=== PATIENT | male | born 1965 | race Caucasian/White ===

== ENCOUNTER 2016-07-08 11:53 | Inpatient (IN) | payer OTHER ==
[~2016-07-08] VITALS: Ht 177.8 cm; Wt 100.7 kg
[~2016-07-08 11:53] MED LIST: ALPR0.5T PO; AMLO1TAB78 PO; CELE200C PO; OMEG1CAP6 PO; OMEP20CA5 PO; VENTOLIN HFA18 GM IH
[2016-07-08 12:20] VITALS: BP 137/92
[2016-07-08] MEDS ORDERED: VANCOMYCIN 1GM IVPB FOR OMNI 250 ML IV ONE (14:00)
[2016-07-08] MEDS ORDERED: ACETAMINOPHEN 325 MG TABLET. PO PRN (14:00)
[2016-07-08] MEDS ORDERED: ONDANSETRON PF 4 MG/2 ML VIAL. IV PRN (14:00)
[2016-07-08] MEDS ORDERED: PIP/TAZO PER PHARMACY MC PRN (14:15)
[2016-07-08] MEDS ORDERED: HEPARIN PF 500 UNIT/5 ML DISP.SYRIN. IV ONE (14:30)
[2016-07-08 15:00] VITALS: BP 126/76
[2016-07-08] MEDS ORDERED: VANCOMYCIN 2 GM in IV NORMAL SALINE 500ML BAG 500 ML IV ONE (15:00)
[2016-07-08 15:30] LABS: BASO % 1 % (0-3); EOS % 2 % (0-3); HEMATOCRIT 44.8 % (39.0-53.0); HEMOGLOBIN 14.7 g/dL (13.0-17.5); LYMPH # 1.7 x10^3/uL (1.0-4.8); LYMPH % 21 % (24-48); MEAN CORPUSCULAR HEMOGLOBIN 28 pg (25-35); MEAN CORPUSCULAR HGB CONC 33 g/dL (31-37); MEAN CORPUSCULAR VOLUME 85 fL (79-100); MONO % 9 % (0-9); NEUT % 68 % (31-73); PLATELET COUNT 250 x10^3/uL (140-400); RED BLOOD COUNT 5.28 x10^6/uL (4.30-5.70); RED CELL DISTRIBUTION WIDTH 14.5 % (11.5-14.5); WHITE BLOOD COUNT 8.1 x10^3/uL (4.0-11.0)
[2016-07-08] MEDS: PIPERACILLIN/TAZOBACTAM 3.375 GM in IV NORMAL SALINE 50ML 50 ML IV SCH (16:04)
[2016-07-08 16:25] LABS: ALBUMIN 3.3 g/dL (3.4-5.0); ALBUMIN/GLOBULIN RATIO 0.7 (1.0-1.7); CALCIUM 8.6 mg/dL (8.5-10.1); GFR 79.1; POTASSIUM 3.9 mmol/L (3.5-5.1); TOTAL BILIRUBIN 0.8 mg/dL (0.2-1.0)
[2016-07-08] MEDS: VANCOMYCIN PER PHARMACY MC PRN ×2 (16:40→16:52)
[2016-07-08] MEDS ORDERED: CONTRAST GIVEN MC PRN (18:00)
[2016-07-08] MEDS ORDERED: IOHEXOL 240 MG/ML 50ML VIAL. PO ONE (18:00)
[2016-07-08 19:00] VITALS: BP 106/60
--- NOTE | 2016-07-08 20:19 | RAD ---
PROCEDURE CT scan of the abdomen and pelvis with oral contrast only 07/08/2016 HISTORY Severe abdominal pain and diarrhea. TECHNIQUE After the oral administration contrast only contiguous, 5 millimeter axial sections were obtained through the abdomen and pelvis. One or more of the following individualized dose reduction techniques were utilized for this study: 1. Automated exposure control. 2. Adjustment of the mA and/or kV according to patient size. 3. Use of iterative reconstruction technique. FINDINGS Images through the lung bases demonstrate a moderate-sized sliding hiatal hernia. Linear bands of subsegmental atelectasis are seen involving both lower lobes. The liver, spleen, pancreas, adrenal glands and kidneys are within normal limits. The abdominal aorta tapers normally. Mild scattered atherosclerotic plaque formation is seen. The gallbladder is contracted. No free fluid or free air is seen within the abdomen. There is no evidence of bowel obstruction. A small umbilical hernia is seen which contains fat and a portion of the proximal jejunum. It measures 1.9 centimeters in greatest diameter. No obstruction is seen. Diffuse wall thickening is seen involving mid jejunal loops within the abdomen. These findings are consistent with an inflammatory/infectious jejunitis. No abscess is seen. Images through the pelvis demonstrate the urinary bladder be contracted. Surgical clips are seen within the left inguinal region. No free fluid is seen. Minimal S-shaped curvature of the thoracolumbar spine is seen. Degenerative changes are seen involving the thoracic and lumbar spine. IMPRESSION Diffuse wall thickening of the mid jejunum is seen consistent with a inflammatory/infectious jejunitis. No abscess or obstruction is seen. Electronically signed by: Job Martin MD (Jul 08, 2016 20:19:03)
[2016-07-08] MEDS: ALPRAZOLAM 0.5 MG TABLET. PO SCH (20:32)
--- NOTE | 2016-07-08 22:01 | HP ---
ADMIT DATE: 07/08/2016 CHIEF COMPLAINT AND HISTORY OF PRESENT ILLNESS: This 51-year-old white male is well known to me from followup in the office. The patient was first seen for this problem on Monday. He came in with left foot pain. ____ dorsum of the foot, probably as big around as a softball and tennis ball in diameter, very tender to the touch. It was felt that this was either cellulitis or ____, was started on Keflex, lab was checked including a CMP, CBC, sed rate and uric acid, all of which were fairly unremarkable. He was seen on the day of admission, much worse with obvious spread of the redness suggesting a cellulitis. He has had a partial big toe amputation of the left foot and prior trauma and has a callus was scabbed on the bottom of the foot, wondering if these two are communicating, although the normal sed rate was quite surprising, but was ____ IV antibiotics as well Ortho and ID evaluation and the patient was admitted. PAST MEDICAL HISTORY: Remarkable for low testosterone, has a history of hypertension, anxiety, GERD. MEDICATIONS: Brought with the patient, listed on the computer and have been addressed. ALLERGIES: None. SOCIAL HISTORY: He is a nonsmoker, does social drink alcohol, does not use drugs. , lives at home with his . FAMILY HISTORY: Noncontributory. REVIEW OF SYSTEMS: Those mentioned above. He has been having diarrhea up to 2-3 times an hour for the last day or so and he complains of abdominal in addition. PHYSICAL EXAMINATION: GENERAL: He is a well-developed, well-nourished white male, in no severe distress. VITAL SIGNS: Stable. He is afebrile. HEENT: Unremarkable. NECK: Supple without adenopathy or thyromegaly. CHEST: Clear to auscultation and percussion. HEART: Regular rate and rhythm without S3, S4 or murmur. ABDOMEN: Diffusely tender without rebound or guarding, though seemed have some hypoactive bowel sounds. EXTREMITIES: Revealed dorsum of the left foot covered with cellulitis and quite tender in the midfoot area. NEUROLOGIC: He is intact. ASSESSMENT: Cellulitis of the left foot with other problems listed above. PLAN: The patient has been admitted, antibiotics will be started. Ortho will be consulted as well with ID and the patient will be monitored, managed and treated appropriately. DAVON JAUREGUI MD DR: Chloe JOB#: [id number] / [id number]
[2016-07-08] MEDS: HYDROCODONE/APAP 5/325MG TABLET. PO PRN (22:41)
[2016-07-08 23:00] VITALS: BP 123/80
[2016-07-09] MEDS: PIPERACILLIN/TAZOBACTAM 3.375 GM in IV NORMAL SALINE 50ML 50 ML IV SCH ×4 (00:03→17:41)
[2016-07-09] MEDS: VANCOMYCIN 1.5 GM in IV NORMAL SALINE 500ML BAG 500 ML IV SCH ×3 (00:47→21:00)
[2016-07-09] MEDS: HYDROCODONE/APAP 5/325MG TABLET. PO PRN ×5 (02:43→22:46)
[2016-07-09 03:00] VITALS: BP 101/53
[2016-07-09 07:00] VITALS: BP 126/74
[2016-07-09] MEDS ORDERED: CELECOXIB 200 MG CAPSULE PO SCH (08:00)
[2016-07-09] MEDS: PANTOPRAZOLE 40 MG TABLET.DR. PO SCH (09:15)
[2016-07-09] MEDS: CELECOXIB 200 MG CAPSULE. PO SCH (09:16)
[2016-07-09] MEDS: OMEGA-3 FATTY ACIDS/FISH OIL 1,000 MG CAPSULE. PO SCH (09:21)
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
[2016-07-09 11:00] VITALS: BP 114/78
--- NOTE | 2016-07-09 11:04 | RAD ---
Three-view left foot study History: Left foot cellulitis Comparison: January 06, 2008. Findings: The previously seen metallic K wire has been removed from the first digit. Since the previous study, an amputation has been performed at the level of the first interphalangeal joint. No osteolytic process is seen. Old healed fracture of the distal third metatarsal bone is seen. No acute fracture is seen. 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 IMPRESSION: No osteomyelitis is seen radiographically.
[2016-07-09] MEDS: COLCHICINE 0.6 MG TABLET PO SCH ×2 (11:08→21:00)
--- NOTE | 2016-07-09 11:59 | PDOC ---
SUBJECTIVE Subjective foot better no osteo on xray OBJECTIVE Vital Signs Vital Signs Date Time Temp Pulse Resp B/P Pulse Ox O2 Delivery O2 Flow Rate FiO2 07/09/16 11:00 97.3 62 20 114/78 98 Room Air 97.3 07/09/16 07:00 97.9 59 20 126/74 97 Room Air 97.9 07/09/16 06:37 95 Room Air 07/09/16 03:45 95 Room Air 07/09/16 03:00 98.6 97 18 101/53 95 Room Air 98.6 07/09/16 02:43 96 Room Air 07/08/16 23:00 98.6 72 18 123/80 96 Room Air 98.6 07/08/16 22:41 94 07/08/16 20:00 Room Air 07/08/16 19:00 98.3 82 18 106/60 94 Room Air 98.3 07/08/16 15:00 97.7 72 18 126/76 95 Room Air 97.7 07/08/16 12:20 97.9 95 18 137/92 97 Room Air 97.9 I & O Intake and Output 07/09/16 07:00 Intake Total 500 ml Balance 500 ml Intake Oral 500 ml # Bowel Movements 4 PHYSICAL EXAM Physical Exam lungs clear heart RRR abd soft mild tenderness today seems better ext left foot better ASSESSMENT/PLAN Assessment/Plan 1- Jujenitis and abd pain/ wt loss , + previous episodes not as bad R/O inflammatory Bowel disease 2-left foot cellulitis vs gout or inflammatory joint disease improved continue ABx and colchicine 3-HTN 4-hypogonadism Problems: COMMENT Lab Laboratory Tests Test 07/08/16 13:45 07/08/16 14:40 Clostridium difficile Toxin (PCR) Negative (Negative) White Blood Count 8.1x10^3/uL (4.0-11.0) Red Blood Count 5.28x10^6/uL (4.30-5.70) Hemoglobin 14.7g/dL (13.0-17.5) Hematocrit 44.8% (39.0-53.0) Mean Corpuscular Volume 85fL (79-100) Mean Corpuscular Hemoglobin 28pg (25-35) Mean Corpuscular Hemoglobin Concent 33g/dL (31-37) Red Cell Distribution Width 14.5% (11.5-14.5) Platelet Count 250x10^3/uL (140-400) Neutrophils (%) (Auto) 68% (31-73) Lymphocytes (%) (Auto) 21% (24-48) Monocytes (%) (Auto) 9% (0-9) Eosinophils (%) (Auto) 2% (0-3) Basophils (%) (Auto) 1% (0-3) Neutrophils # (Auto) 5.5x10^3uL (1.8-7.7) Lymphocytes # (Auto) 1.7x10^3/uL (1.0-4.8) Monocytes # (Auto) 0.7x10^3/uL (0.0-1.1) Eosinophils # (Auto) 0.2x10^3/uL (0.0-0.7) Basophils # (Auto) 0.0x10^3/uL (0.0-0.2) Erythrocyte Sedimentation Rate 17 (0-15) Sodium Level 135mmol/L (136-145) Potassium Level 3.9mmol/L (3.5-5.1) Chloride Level 103mmol/L (98-107) Carbon Dioxide Level 20mmol/L (21-32) Anion Gap 12 (6-14) Blood Urea Nitrogen 16mg/dL (8-26) Creatinine 1.0mg/dL (0.7-1.3) Estimated GFR (Cockcroft-Gault) 79.1 BUN/Creatinine Ratio 16 (6-20) Glucose Level 86mg/dL (70-99) Calcium Level 8.6mg/dL (8.5-10.1) Total Bilirubin 0.8mg/dL (0.2-1.0) Aspartate Amino Transf (AST/SGOT) 15U/L (15-37) Alanine Aminotransferase (ALT/SGPT) 27U/L (16-63) Alkaline Phosphatase 59U/L (46-116) Total Protein 8.0g/dL (6.4-8.2) Albumin 3.3g/dL (3.4-5.0) Albumin/Globulin Ratio 0.7 (1.0-1.7) JONATHAN TORRES MD Jul 09, 2016 11:59
[2016-07-09] MEDS: OXYCODONE/APAP 7.5/325 TABLET. PO PRN ×2 (12:44→21:03)
[2016-07-09] MEDS: ENOXAPARIN 40 MG/0.4 ML SYRINGE. SQ SCH (12:51)
--- NOTE | 2016-07-09 13:27 | PDOC2 ---
CONSULT Date of Consult Date of Consult DATE: 07/09/16 TIME: 13:25 Reason for Consult Reason for Consult: Abd pain/diarrhea/abnl Ct scan jejunitis Current Medications Current Medications Current Medications Vancomycin HCl 250 ml @ 250 mls/hr 1X ONCE IV ; Start 07/08/16 at 14:00; Stop 07/08/16 at 14:59; Status UNV Heparin Sodium (Porcine) (Hep Lock Adult) 500 unit 1X ONCE IV Last administered on 07/08/16 16:35; Start 07/08/16 at 14:30; Stop 07/08/16 at 14:31; Status DC Ondansetron HCl (Zofran) 4 mg PRN Q6HRS PRN IV NAUSEA/VOMITING Last administered on 07/08/16 17:27; Start 07/08/16 at 14:00 Acetaminophen (Tylenol) 650 mg PRN Q6HRS PRN PO MILD PAIN / TEMP; Start at 14:00 Vancomycin HCl (Vanco Per Pharmacy) 1 each PRN DAILY PRN MC SEE COMMENTS Last administered on 07/08/16 16:52; Start 07/08/16 at 14:15 Piperacillin Sod/ Tazobactam Sod 1 each 1 each PRN DAILY PRN MC SEE COMMENTS; Start 07/08/16 at 14:15 Vancomycin HCl 2 gm/Sodium Chloride 500 ml @ 250 mls/hr 1X ONCE IV Last administered on 07/08/16 16:02; Start 07/08/16 at 15:00; Stop 07/08/16 at 16:59; Status DC Piperacillin Sod/ Tazobactam Sod/ Sodium Chloride (Zosyn/Iv Sodium Chloride 0.9 % 50ml) 50 ml @ 100 mls/hr Q6HRS IV Last administered on 07/09/16 12:50; Start 07/08/16 at 15:00 Vancomycin HCl 1 each 1 each 1X ONCE MC ; Start 07/09/16 at 15:30; Stop 07/09/16 at 15:31 Vancomycin HCl/ Sodium Chloride (Iv Sodium Chloride 0.9% 500ml Bag) 500 ml @ 250 mls/hr Q8H IV Last administered on 07/09/16 09:16; Start 07/08/16 at 23:59 Alprazolam (Xanax) 0.5 mg QHS PO Last administered on 07/08/16 20:32; Start 07/08/16 at 21:00 Celecoxib (Celebrex) 200 mg DAILY08 PO ; Start 07/09/16 at 08:00; Stop 07/09/16 at 08:00; Status DC Fish Oil (Fish Oil) 1,000 mg DAILY PO Last administered on 07/09/16 09:21; Start 07/09/16 at 09:00 Pantoprazole Sodium (Protonix) 40 mg DAILYAC PO Last administered on 07/09/16 09:15; Start 07/09/16 at 07:30 Celecoxib (Celebrex) 200 mg DAILY08 PO Last administered on 07/09/16 09:16; Start 07/09/16 at 08:00 Iohexol (Omnipaque 240 Mg/ml) 30 ml 1X ONCE PO Last administered on 07/08/16 18:00; Start 07/08/16 at 18:00; Stop 07/08/16 at 18:01; Status DC Info (Do NOT chart on this entry -- for MONITORING) 1 each PRN DAILY PRN MC SEE COMMENTS; Start 07/08/16 at 18:00; Stop 07/10/16 at 17:59 Acetaminophen/ Hydrocodone Bitart (Lortab 5/325) 1 tab PRN Q4HRS PRN PO PAIN; Start 07/08/16 at 21:15 Acetaminophen/ Hydrocodone Bitart (Lortab 5/325) 2 tab PRN Q4HRS PRN PO PAIN Last administered on 07/09/16 11:09; Start 07/08/16 at 21:15 Colchicine (Colcrys) 0.6 mg BID PO Last administered on 07/09/16 11:08; Start 07/09/16 at 10:30; Stop 07/14/16 at 10:29 Oxycodone/ Acetaminophen (Percocet 7.5/ 325) 1 tab PRN Q6HRS PRN PO PAIN Last administered on 07/09/16 12:44; Start 07/09/16 at 12:00 Enoxaparin Sodium (Lovenox 40mg Syringe) 40 mg Q24H SQ Last administered on 07/09 12:51; Start 07/09/16 at 13:00 Active Scripts Active Reported Fish Oil 1,000 Mg Capsule ([place]-3 Fatty Acids/Fish Oil) 1 Each Capsule 1 Each PO Celebrex (Celecoxib) 200 Mg Capsule 200 Mg PO DAILY08 Ventolin Hfa Inhaler (Albuterol Sulfate) 18 Gm Hfa.aer.ad 18 Gm IH QIDPRN PRN Xanax (Alprazolam) 0.5 Mg Tablet 0.5 Mg PO QHS Seth 10-40 Mg Tablet (Amlodipine Bes/Olmesartan Med) 1 Each Tablet 1 Each PO DAILY08 Prilosec (Omeprazole) 20 Mg Capsule.dr 20 Mg PO DAILY08 Allergies Allergies: Coded Allergies: No Known Drug Allergies (Unverified , 07/17/13) Vitals VITALS Vital Signs Date Time Temp Pulse Resp B/P Pulse Ox O2 Delivery O2 Flow Rate FiO2 07/09/16 11:00 97.3 62 20 114/78 98 Room Air 97.3 Labs Labs Laboratory Tests Test 07/08/16 13:45 07/08/16 14:40 Clostridium difficile Toxin (PCR) Negative (Negative) White Blood Count 8.1x10^3/uL (4.0-11.0) Red Blood Count 5.28x10^6/uL (4.30-5.70) Hemoglobin 14.7g/dL (13.0-17.5) Hematocrit 44.8% (39.0-53.0) Mean Corpuscular Volume 85fL (79-100) Mean Corpuscular Hemoglobin 28pg (25-35) Mean Corpuscular Hemoglobin Concent 33g/dL (31-37) Red Cell Distribution Width 14.5% (11.5-14.5) Platelet Count 250x10^3/uL (140-400) Neutrophils (%) (Auto) 68% (31-73) Lymphocytes (%) (Auto) 21% (24-48) Monocytes (%) (Auto) 9% (0-9) Eosinophils (%) (Auto) 2% (0-3) Basophils (%) (Auto) 1% (0-3) Neutrophils # (Auto) 5.5x10^3uL (1.8-7.7) Lymphocytes # (Auto) 1.7x10^3/uL (1.0-4.8) Monocytes # (Auto) 0.7x10^3/uL (0.0-1.1) Eosinophils # (Auto) 0.2x10^3/uL (0.0-0.7) Basophils # (Auto) 0.0x10^3/uL (0.0-0.2) Erythrocyte Sedimentation Rate 17 (0-15) Sodium Level 135mmol/L (136-145) Potassium Level 3.9mmol/L (3.5-5.1) Chloride Level 103mmol/L (98-107) Carbon Dioxide Level 20mmol/L (21-32) Anion Gap 12 (6-14) Blood Urea Nitrogen 16mg/dL (8-26) Creatinine 1.0mg/dL (0.7-1.3) Estimated GFR (Cockcroft-Gault) 79.1 BUN/Creatinine Ratio 16 (6-20) Glucose Level 86mg/dL (70-99) Calcium Level 8.6mg/dL (8.5-10.1) Total Bilirubin 0.8mg/dL (0.2-1.0) Aspartate Amino Transf (AST/SGOT) 15U/L (15-37) Alanine Aminotransferase (ALT/SGPT) 27U/L (16-63) Alkaline Phosphatase 59U/L (46-116) Total Protein 8.0g/dL (6.4-8.2) Albumin 3.3g/dL (3.4-5.0) Albumin/Globulin Ratio 0.7 (1.0-1.7) Laboratory Tests Test 07/08/16 13:45 07/08/16 14:40 Clostridium difficile Toxin (PCR) Negative (Negative) White Blood Count 8.1x10^3/uL (4.0-11.0) Red Blood Count 5.28x10^6/uL (4.30-5.70) Hemoglobin 14.7g/dL (13.0-17.5) Hematocrit 44.8% (39.0-53.0) Mean Corpuscular Volume 85fL (79-100) Mean Corpuscular Hemoglobin 28pg (25-35) Mean Corpuscular Hemoglobin Concent 33g/dL (31-37) Red Cell Distribution Width 14.5% (11.5-14.5) Platelet Count 250x10^3/uL (140-400) Neutrophils (%) (Auto) 68% (31-73) Lymphocytes (%) (Auto) 21% (24-48) Monocytes (%) (Auto) 9% (0-9) Eosinophils (%) (Auto) 2% (0-3) Basophils (%) (Auto) 1% (0-3) Neutrophils # (Auto) 5.5x10^3uL (1.8-7.7) Lymphocytes # (Auto) 1.7x10^3/uL (1.0-4.8) Monocytes # (Auto) 0.7x10^3/uL (0.0-1.1) Eosinophils # (Auto) 0.2x10^3/uL (0.0-0.7) Basophils # (Auto) 0.0x10^3/uL (0.0-0.2) Erythrocyte Sedimentation Rate 17 (0-15) Sodium Level 135mmol/L (136-145) Potassium Level 3.9mmol/L (3.5-5.1) Chloride Level 103mmol/L (98-107) Carbon Dioxide Level 20mmol/L (21-32) Anion Gap 12 (6-14) Blood Urea Nitrogen 16mg/dL (8-26) Creatinine 1.0mg/dL (0.7-1.3) Estimated GFR (Cockcroft-Gault) 79.1 BUN/Creatinine Ratio 16 (6-20) Glucose Level 86mg/dL (70-99) Calcium Level 8.6mg/dL (8.5-10.1) Total Bilirubin 0.8mg/dL (0.2-1.0) Aspartate Amino Transf (AST/SGOT) 15U/L (15-37) Alanine Aminotransferase (ALT/SGPT) 27U/L (16-63) Alkaline Phosphatase 59U/L (46-116) Total Protein 8.0g/dL (6.4-8.2) Albumin 3.3g/dL (3.4-5.0) Albumin/Globulin Ratio 0.7 (1.0-1.7) Assessment/Plan Assessment/Plan Abd pain- with diarrhea and abnl CT scan, differential includes infection, IBD, and/or ischemia-vasculitis Plan stool cultures for Campylobacter, Giardia, and/or Salmonella possible SB series and/or interval colonoscopy with biopsies if above unrevealing/symptoms persist Full note dictated SAMUEL ROMERO MD Jul 09, 2016 13:27
[2016-07-09 15:00] VITALS: BP 118/73
[2016-07-09] MEDS: VANCOMYCIN PER PHARMACY MC PRN (16:06)
--- NOTE | 2016-07-09 16:11 | PDOC ---
Infectious Disease Note ROS ROS Vital Sign Vital Signs Vital Signs Date Time Temp Pulse Resp B/P Pulse Ox O2 Delivery O2 Flow Rate FiO2 07/09/16 15:00 98.0 68 20 118/73 97 Room Air 98.0 Labs Lab Laboratory Tests Test 07/09/16 15:25 Uric Acid 4.2mg/dL (3.5-7.2) Vancomycin Level Trough 22.1mcg/mL (10.0-20.0) Vancomycin Last Dose Date 07/09/16 Vancomycin Last Dose Time 0800 Objective Assessment Cellulitis of left foot. Failed OP Keflex Abdominal pain with abnormal CT (inflammatory/infectious jejunitis) Diarrhea. C. diff neg GERD Plan Plan of Care vanc and Zosyn Monitor response/labs/stool cultures Leg elevation Thank you [id number] Attending Co-Sign The patient was seen and interviewed as well as examined at the bedside. The chart was reviewed. The case was discussed. Agree with the plan of care. CHRISTIANO CLEMENTE APRN Jul 09, 2016 16:11 WILLARD DALAL MD Jul 09, 2016 16:39
[2016-07-09 19:50] VITALS: BP 116/77
[2016-07-09] MEDS: ALPRAZOLAM 0.5 MG TABLET. PO SCH (21:00)
[2016-07-09 23:37] VITALS: BP 132/58
[2016-07-10] MEDS: PIPERACILLIN/TAZOBACTAM 3.375 GM in IV NORMAL SALINE 50ML 50 ML IV SCH ×3 (00:13→13:23)
[2016-07-10 03:00] VITALS: BP 110/54
[2016-07-10] MEDS: HYDROCODONE/APAP 5/325MG TABLET. PO PRN ×2 (04:49→13:31)
[2016-07-10 05:05] LABS: HEMATOCRIT 38.7 % (39.0-53.0); HEMOGLOBIN 12.6 g/dL (13.0-17.5); RED BLOOD COUNT 4.63 x10^6/uL (4.30-5.70); RED CELL DISTRIBUTION WIDTH 14.3 % (11.5-14.5); WHITE BLOOD COUNT 6.9 x10^3/uL (4.0-11.0)
[2016-07-10 05:25] LABS: ALBUMIN 2.7 g/dL (3.4-5.0); ALBUMIN/GLOBULIN RATIO 0.8 (1.0-1.7); CALCIUM 8.5 mg/dL (8.5-10.1); GFR 79.1; POTASSIUM 4.2 mmol/L (3.5-5.1); TOTAL BILIRUBIN 0.4 mg/dL (0.2-1.0); TOTAL PROTEIN 6.2 g/dL (6.4-8.2)
[2016-07-10] MEDS: PANTOPRAZOLE 40 MG TABLET.DR. PO SCH (06:15)
[2016-07-10 07:00] VITALS: BP 127/68
[2016-07-10] MEDS: OMEGA-3 FATTY ACIDS/FISH OIL 1,000 MG CAPSULE. PO SCH (08:53)
[2016-07-10] MEDS: OXYCODONE/APAP 7.5/325 TABLET. PO PRN (08:54)
[2016-07-10] MEDS: CELECOXIB 200 MG CAPSULE. PO SCH (08:54)
[2016-07-10] MEDS: VANCOMYCIN 1.5 GM in IV NORMAL SALINE 500ML BAG 500 ML IV SCH (09:00)
--- NOTE | 2016-07-10 09:56 | PDOC ---
PROGRESS NOTES Subjective Subjective Doing better today. Pt reports right foot pain and redness is improved and he is wanting to go home. Objective Vital Signs Vital Signs Date Time Temp Pulse Resp B/P Pulse Ox O2 Delivery O2 Flow Rate FiO2 07/10/16 08:54 Room Air 07/10/16 07:00 97.7 68 20 127/68 95 97.7 Physical Exam Up walking the halls, without difficulty. The distal phalanx of the great toe has been amputated. Right foot erythema and swelling is improved. Not tender to palpation. Full range of motion, without pain. Absent sensation of the medial aspect of the second toe. Otherwise, light touch sensation intact. Peripheral pulses intact. Labs Laboratory Tests Test 07/08/16 13:45 07/08/16 14:40 07/09/16 15:25 07/10/16 04:30 Clostridium difficile Toxin (PCR) Negative (Negative) White Blood Count 8.1x10^3/uL (4.0-11.0) 6.9x10^3/uL (4.0-11.0) Red Blood Count 5.28x10^6/uL (4.30-5.70) 4.63x10^6/uL (4.30-5.70) Hemoglobin 14.7g/dL (13.0-17.5) 12.6g/dL (13.0-17.5) Hematocrit 44.8% (39.0-53.0) 38.7% (39.0-53.0) Mean Corpuscular Volume 85fL (79-100) 84fL (79-100) Mean Corpuscular Hemoglobin 28pg (25-35) 27pg (25-35) Mean Corpuscular Hemoglobin Concent 33g/dL (31-37) 33g/dL (31-37) Red Cell Distribution Width 14.5% (11.5-14.5) 14.3% (11.5-14.5) Platelet Count 250x10^3/uL (140-400) 223x10^3/uL (140-400) Neutrophils (%) (Auto) 68% (31-73) Lymphocytes (%) (Auto) 21% (24-48) Monocytes (%) (Auto) 9% (0-9) Eosinophils (%) (Auto) 2% (0-3) Basophils (%) (Auto) 1% (0-3) Neutrophils # (Auto) 5.5x10^3uL (1.8-7.7) Lymphocytes # (Auto) 1.7x10^3/uL (1.0-4.8) Monocytes # (Auto) 0.7x10^3/uL (0.0-1.1) Eosinophils # (Auto) 0.2x10^3/uL (0.0-0.7) Basophils # (Auto) 0.0x10^3/uL (0.0-0.2) Erythrocyte Sedimentation Rate 17 (0-15) 10 (0-15) Sodium Level 135mmol/L (136-145) 141mmol/L (136-145) Potassium Level 3.9mmol/L (3.5-5.1) 4.2mmol/L (3.5-5.1) Chloride Level 103mmol/L (98-107) 109mmol/L (98-107) Carbon Dioxide Level 20mmol/L (21-32) 23mmol/L (21-32) Anion Gap 12 (6-14) 9 (6-14) Blood Urea Nitrogen 16mg/dL (8-26) 10mg/dL (8-26) Creatinine 1.0mg/dL (0.7-1.3) 1.0mg/dL (0.7-1.3) Estimated GFR (Cockcroft-Gault) 79.1 79.1 BUN/Creatinine Ratio 16 (6-20) 10 (6-20) Glucose Level 86mg/dL (70-99) 84mg/dL (70-99) Calcium Level 8.6mg/dL (8.5-10.1) 8.5mg/dL (8.5-10.1) Total Bilirubin 0.8mg/dL (0.2-1.0) 0.4mg/dL (0.2-1.0) Aspartate Amino Transf (AST/SGOT) 15U/L (15-37) 14U/L (15-37) Alanine Aminotransferase (ALT/SGPT) 27U/L (16-63) 23U/L (16-63) Alkaline Phosphatase 59U/L (46-116) 43U/L (46-116) Total Protein 8.0g/dL (6.4-8.2) 6.2g/dL (6.4-8.2) Albumin 3.3g/dL (3.4-5.0) 2.7g/dL (3.4-5.0) Albumin/Globulin Ratio 0.7 (1.0-1.7) 0.8 (1.0-1.7) Uric Acid 4.2mg/dL (3.5-7.2) 3.7mg/dL (3.5-7.2) Vancomycin Level Trough 22.1mcg/mL (10.0-20.0) Vancomycin Last Dose Date 07/09/16 Vancomycin Last Dose Time 0800 Laboratory Tests Test 07/09/16 15:25 07/10/16 04:30 Uric Acid 4.2mg/dL (3.5-7.2) 3.7mg/dL (3.5-7.2) Vancomycin Level Trough 22.1mcg/mL (10.0-20.0) Vancomycin Last Dose Date 07/09/16 Vancomycin Last Dose Time 0800 White Blood Count 6.9x10^3/uL (4.0-11.0) Red Blood Count 4.63x10^6/uL (4.30-5.70) Hemoglobin 12.6g/dL (13.0-17.5) Hematocrit 38.7% (39.0-53.0) Mean Corpuscular Volume 84fL (79-100) Mean Corpuscular Hemoglobin 27pg (25-35) Mean Corpuscular Hemoglobin Concent 33g/dL (31-37) Red Cell Distribution Width 14.3% (11.5-14.5) Platelet Count 223x10^3/uL (140-400) Erythrocyte Sedimentation Rate 10 (0-15) Sodium Level 141mmol/L (136-145) Potassium Level 4.2mmol/L (3.5-5.1) Chloride Level 109mmol/L (98-107) Carbon Dioxide Level 23mmol/L (21-32) Anion Gap 9 (6-14) Blood Urea Nitrogen 10mg/dL (8-26) Creatinine 1.0mg/dL (0.7-1.3) Estimated GFR (Cockcroft-Gault) 79.1 BUN/Creatinine Ratio 10 (6-20) Glucose Level 84mg/dL (70-99) Calcium Level 8.5mg/dL (8.5-10.1) Total Bilirubin 0.4mg/dL (0.2-1.0) Aspartate Amino Transf (AST/SGOT) 14U/L (15-37) Alanine Aminotransferase (ALT/SGPT) 23U/L (16-63) Alkaline Phosphatase 43U/L (46-116) Total Protein 6.2g/dL (6.4-8.2) Albumin 2.7g/dL (3.4-5.0) Albumin/Globulin Ratio 0.8 (1.0-1.7) Imaging Right foot x-rays were reviewed. Amputation has been performed at the level of the first interphalangeal joint. No osteolytic process is seen. There is an old , healed fracture of the distal metatarsal bone. Mild degenerative changes. No evidence of osteomyelitis. Assessment Assessment Right foot cellulitis. Gout likely. Problems: Plan Plan of Care Continue oral gout medication, colchicine twice daily for a total of five days, and antibiotics per ID. From our standpoint, he may be discharged home. CHAPIS MCGRATH Jul 10, 2016 09:56
[2016-07-10] MEDS: COLCHICINE 0.6 MG TABLET PO SCH (10:13)
--- NOTE | 2016-07-10 10:59 | PDOC ---
Infectious Disease Note Subjective Subjective Feeling well, wants to go home No further diarrhea since yesterday morning Denies abdominal pain Left foot less swollen and red. Denies pain ROS ROS GEN: Denies fevers, chills, sweats CV: Denies chest pain RESP: Denies shortness of air, cough GI: Denies n/v Vital Sign Vital Signs Vital Signs Date Time Temp Pulse Resp B/P Pulse Ox O2 Delivery O2 Flow Rate FiO2 07/10/16 08:54 Room Air 07/10/16 07:00 97.7 68 20 127/68 95 97.7 Physical Exam PHYSICAL EXAM GENERAL: Propped up in bed, NAD HEENT: PERRL, OC/OP clear LUNGS: Clear HEART: S1S2, no gallop, no murmur ABD: Soft, NT EXT: No edema, no cyanosis. Left foot cellulitis improving: minimal redness now and less swollen, nontender DOT COMPLIANCE COORDINATOR: Alert, oriented x 3, no focal neurologic deficit SKIN: No rash IV: ok Labs Lab Laboratory Tests Test 07/09/16 15:25 07/10/16 04:30 Uric Acid 4.2mg/dL (3.5-7.2) 3.7mg/dL (3.5-7.2) Vancomycin Level Trough 22.1mcg/mL (10.0-20.0) Vancomycin Last Dose Date 07/09/16 Vancomycin Last Dose Time 0800 White Blood Count 6.9x10^3/uL (4.0-11.0) Red Blood Count 4.63x10^6/uL (4.30-5.70) Hemoglobin 12.6g/dL (13.0-17.5) Hematocrit 38.7% (39.0-53.0) Mean Corpuscular Volume 84fL (79-100) Mean Corpuscular Hemoglobin 27pg (25-35) Mean Corpuscular Hemoglobin Concent 33g/dL (31-37) Red Cell Distribution Width 14.3% (11.5-14.5) Platelet Count 223x10^3/uL (140-400) Erythrocyte Sedimentation Rate 10 (0-15) Sodium Level 141mmol/L (136-145) Potassium Level 4.2mmol/L (3.5-5.1) Chloride Level 109mmol/L (98-107) Carbon Dioxide Level 23mmol/L (21-32) Anion Gap 9 (6-14) Blood Urea Nitrogen 10mg/dL (8-26) Creatinine 1.0mg/dL (0.7-1.3) Estimated GFR (Cockcroft-Gault) 79.1 BUN/Creatinine Ratio 10 (6-20) Glucose Level 84mg/dL (70-99) Calcium Level 8.5mg/dL (8.5-10.1) Total Bilirubin 0.4mg/dL (0.2-1.0) Aspartate Amino Transf (AST/SGOT) 14U/L (15-37) Alanine Aminotransferase (ALT/SGPT) 23U/L (16-63) Alkaline Phosphatase 43U/L (46-116) Total Protein 6.2g/dL (6.4-8.2) Albumin 2.7g/dL (3.4-5.0) Albumin/Globulin Ratio 0.8 (1.0-1.7) Objective Assessment Cellulitis of left foot. Failed OP Keflex. improving Abdominal pain with abnormal CT (inflammatory/infectious jejunitis) -colonoscopy 2015, Diarrhea. C. diff neg GERD h/o PE Plan Plan of Care vanc and Zosyn, change to po soon stool cultures pending Leg elevation D/w Attending Co-Sign The patient was seen and interviewed as well as examined at the bedside. The chart was reviewed. The case was discussed. Agree with the plan of care. CHRISTIANO CLEMENTE APRN Jul 10, 2016 10:59 WILLARD DALAL MD Jul 10, 2016 14:54
[2016-07-10 11:00] VITALS: BP 129/76
--- NOTE | 2016-07-10 11:26 | CONS ---
DATE OF CONSULTATION: 07/08/2016 REQUESTING PHYSICIAN: Caesar Ash MD REASON FOR CONSULTATION: Left lower extremity cellulitis. HISTORY OF PRESENT ILLNESS: The patient is a 51-year-old male who developed pain in his left foot about a week ago followed by redness and swelling 4 days later. He believes he may have dropped an object on his foot while in the garage though he is not sure. He was seen by his primary care provider. Lab work including sed rate, uric acid and CBC were unremarkable. He was prescribed Keflex without improvement. An x-ray revealed no evidence of osteomyelitis or acute fracture. 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 He has a history of having a partial amputation of the first big toe and graft secondary to trauma. There is scarring on the bottom of his foot where he has noticed a small opening off and on. About a day and a half after taking the Keflex, he developed abdominal pain associated with diarrhea and a brief episode of nausea. He has had similar symptoms in the past that were self-limiting. A CT abdomen/pelvis revealed diffuse wall thickening of the mid jejunum consistent with inflammatory/infectious jejunitis. No abscess or obstruction seen. Stool cultures have been ordered. Clostridium difficile PCR is negative. GI is following. Since admission, the patient has been started on vancomycin and Zosyn. He has not noticed a marked improvement in the swelling and redness as of yet. Pain is somewhat better. He is not able to bear full weight. Denies fevers, chills or sweats. He denies change in food or dining out. Family members are without abdominal symptoms. Denies blood in the stool. Denies vomiting. Denies dysuria, frequency or urgency. Denies back pain. Denies rash. The patient is actively losing weight. So far, he has lost 40 pounds. He exercises. Abdominal pain described as sharp and band-like with short frequent durations. PAST MEDICAL HISTORY: Hypertension, anxiety, gastroesophageal reflux disease, pulmonary emboli, now off anticoagulation therapy. PAST SURGICAL HISTORY: Partial amputation of the left big toe in graft. Right shoulder grade 5 separation repair, umbilical hernia repair with mesh in 2016, inguinal hernia, and tonsillectomy. SOCIAL HISTORY: The patient is . He is employed. Nonsmoker. Left foot tattoo about 12 years ago. FAMILY HISTORY: Positive for prostate cancer. ALLERGIES: No known drug allergies. MEDICATIONS: Vancomycin, piperacillin/tazobactam, and colchicine. Other medications are available and have been reviewed on the MAR. REVIEW OF SYSTEMS: Per HPI, otherwise all other review of systems are negative. PHYSICAL EXAMINATION: GENERAL: male, propped up in bed, in no apparent distress. VITAL SIGNS: Temperature 98.0, blood pressure 118/73, heart rate 68, respiratory rate 20, pulse oximetry is 97% on room air, and weight is 222 pounds. HEENT: Pupils equally round and reactive. Normal conjunctivae. Oral mucosa is pink and moist. NECK: Supple. No adenopathy present. LUNGS: Clear to auscultation bilaterally. HEART: Normal S1 and S2. No murmur appreciated. ABDOMEN: Nondistended, bowel sounds are present, soft, nontender. EXTREMITIES: No gross edema or cyanosis. The left foot is lightly erythematous and warm with mild swelling on the dorsal site. There is a tattoo noted. Mildly tender. On the plantar side, there is a scar and callus with no area of redness or drainage. SKIN: Without rash. NEUROLOGIC: Alert and oriented x 3. Moves all extremities. LABORATORY DATA: WBC 8.1, hemoglobin 14.7, platelet count 250,000, and sed rate 17. Sodium 135, potassium 2.9, creatinine 1.0, BUN 16, glucose 86, total bilirubin 0.8, AST 15, ALT 27, and albumin 3.3. Clostridium difficile PCR negative. Stool cultures pending. Rheumatoid factor and uric acid are pending as well. IMAGING: Per HPI. IMPRESSION: 1. Cellulitis of left foot. 2. Abdominal pain with abnormal CT. 3. Diarrhea. 4. Gastroesophageal reflux disease. PLAN: Continue antibiotics. Monitor laboratory values. We will follow up on cultures. Leg elevation. Supportive care. Thank you, Dr. Ash for asking us to participate in this patient's care. Should you have further questions or concerns, please call. WILLARD DALAL MD DR: EVAN/matt JOB#: [id number] / [id number]
--- NOTE | 2016-07-10 12:32 | PDOC ---
G I PROGRESS NOTE Reason for Follow-up Abd pain/diarrhea Subjective Tolerating PO/wants to go home Physical Exam Lungs clear CV S1 S2 ABD +BS, soft, mild tenderness to palpation Review of Relevant I have reviewed the following items palomo (where applicable) has been applied. Labs Laboratory Tests Test 07/08/16 13:45 07/08/16 14:40 07/09/16 15:25 07/10/16 04:30 Clostridium difficile Toxin (PCR) Negative (Negative) White Blood Count 8.1x10^3/uL (4.0-11.0) 6.9x10^3/uL (4.0-11.0) Red Blood Count 5.28x10^6/uL (4.30-5.70) 4.63x10^6/uL (4.30-5.70) Hemoglobin 14.7g/dL (13.0-17.5) 12.6g/dL (13.0-17.5) Hematocrit 44.8% (39.0-53.0) 38.7% (39.0-53.0) Mean Corpuscular Volume 85fL (79-100) 84fL (79-100) Mean Corpuscular Hemoglobin 28pg (25-35) 27pg (25-35) Mean Corpuscular Hemoglobin Concent 33g/dL (31-37) 33g/dL (31-37) Red Cell Distribution Width 14.5% (11.5-14.5) 14.3% (11.5-14.5) Platelet Count 250x10^3/uL (140-400) 223x10^3/uL (140-400) Neutrophils (%) (Auto) 68% (31-73) Lymphocytes (%) (Auto) 21% (24-48) Monocytes (%) (Auto) 9% (0-9) Eosinophils (%) (Auto) 2% (0-3) Basophils (%) (Auto) 1% (0-3) Neutrophils # (Auto) 5.5x10^3uL (1.8-7.7) Lymphocytes # (Auto) 1.7x10^3/uL (1.0-4.8) Monocytes # (Auto) 0.7x10^3/uL (0.0-1.1) Eosinophils # (Auto) 0.2x10^3/uL (0.0-0.7) Basophils # (Auto) 0.0x10^3/uL (0.0-0.2) Erythrocyte Sedimentation Rate 17 (0-15) 10 (0-15) Sodium Level 135mmol/L (136-145) 141mmol/L (136-145) Potassium Level 3.9mmol/L (3.5-5.1) 4.2mmol/L (3.5-5.1) Chloride Level 103mmol/L (98-107) 109mmol/L (98-107) Carbon Dioxide Level 20mmol/L (21-32) 23mmol/L (21-32) Anion Gap 12 (6-14) 9 (6-14) Blood Urea Nitrogen 16mg/dL (8-26) 10mg/dL (8-26) Creatinine 1.0mg/dL (0.7-1.3) 1.0mg/dL (0.7-1.3) Estimated GFR (Cockcroft-Gault) 79.1 79.1 BUN/Creatinine Ratio 16 (6-20) 10 (6-20) Glucose Level 86mg/dL (70-99) 84mg/dL (70-99) Calcium Level 8.6mg/dL (8.5-10.1) 8.5mg/dL (8.5-10.1) Total Bilirubin 0.8mg/dL (0.2-1.0) 0.4mg/dL (0.2-1.0) Aspartate Amino Transf (AST/SGOT) 15U/L (15-37) 14U/L (15-37) Alanine Aminotransferase (ALT/SGPT) 27U/L (16-63) 23U/L (16-63) Alkaline Phosphatase 59U/L (46-116) 43U/L (46-116) Total Protein 8.0g/dL (6.4-8.2) 6.2g/dL (6.4-8.2) Albumin 3.3g/dL (3.4-5.0) 2.7g/dL (3.4-5.0) Albumin/Globulin Ratio 0.7 (1.0-1.7) 0.8 (1.0-1.7) Uric Acid 4.2mg/dL (3.5-7.2) 3.7mg/dL (3.5-7.2) Vancomycin Level Trough 22.1mcg/mL (10.0-20.0) Vancomycin Last Dose Date 07/09/16 Vancomycin Last Dose Time 0800 Laboratory Tests Test 07/09/16 15:25 07/10/16 04:30 Uric Acid 4.2mg/dL (3.5-7.2) 3.7mg/dL (3.5-7.2) Vancomycin Level Trough 22.1mcg/mL (10.0-20.0) Vancomycin Last Dose Date 07/09/16 Vancomycin Last Dose Time 0800 White Blood Count 6.9x10^3/uL (4.0-11.0) Red Blood Count 4.63x10^6/uL (4.30-5.70) Hemoglobin 12.6g/dL (13.0-17.5) Hematocrit 38.7% (39.0-53.0) Mean Corpuscular Volume 84fL (79-100) Mean Corpuscular Hemoglobin 27pg (25-35) Mean Corpuscular Hemoglobin Concent 33g/dL (31-37) Red Cell Distribution Width 14.3% (11.5-14.5) Platelet Count 223x10^3/uL (140-400) Erythrocyte Sedimentation Rate 10 (0-15) Sodium Level 141mmol/L (136-145) Potassium Level 4.2mmol/L (3.5-5.1) Chloride Level 109mmol/L (98-107) Carbon Dioxide Level 23mmol/L (21-32) Anion Gap 9 (6-14) Blood Urea Nitrogen 10mg/dL (8-26) Creatinine 1.0mg/dL (0.7-1.3) Estimated GFR (Cockcroft-Gault) 79.1 BUN/Creatinine Ratio 10 (6-20) Glucose Level 84mg/dL (70-99) Calcium Level 8.5mg/dL (8.5-10.1) Total Bilirubin 0.4mg/dL (0.2-1.0) Aspartate Amino Transf (AST/SGOT) 14U/L (15-37) Alanine Aminotransferase (ALT/SGPT) 23U/L (16-63) Alkaline Phosphatase 43U/L (46-116) Total Protein 6.2g/dL (6.4-8.2) Albumin 2.7g/dL (3.4-5.0) Albumin/Globulin Ratio 0.8 (1.0-1.7) Medications Current Medications Vancomycin HCl 250 ml @ 250 mls/hr 1X ONCE IV ; Start 07/08/16 at 14:00; Stop 07/08/16 at 14:59; Status UNV Heparin Sodium (Porcine) (Hep Lock Adult) 500 unit 1X ONCE IV Last administered on 07/08/16 16:35; Start 07/08/16 at 14:30; Stop 07/08/16 at 14:31; Status DC Ondansetron HCl (Zofran) 4 mg PRN Q6HRS PRN IV NAUSEA/VOMITING Last administered on 07/08/16 17:27; Start 07/08/16 at 14:00 Acetaminophen (Tylenol) 650 mg PRN Q6HRS PRN PO MILD PAIN / TEMP; Start at 14:00 Vancomycin HCl (Vanco Per Pharmacy) 1 each PRN DAILY PRN MC SEE COMMENTS Last administered on 07/09/16 16:06; Start 07/08/16 at 14:15 Piperacillin Sod/ Tazobactam Sod 1 each 1 each PRN DAILY PRN MC SEE COMMENTS; Start 07/08/16 at 14:15 Vancomycin HCl 2 gm/Sodium Chloride 500 ml @ 250 mls/hr 1X ONCE IV Last administered on 07/08/16 16:02; Start 07/08/16 at 15:00; Stop 07/08/16 at 16:59; Status DC Piperacillin Sod/ Tazobactam Sod/ Sodium Chloride (Zosyn/Iv Sodium Chloride 0.9 % 50ml) 50 ml @ 100 mls/hr Q6HRS IV Last administered on 07/10/16 06:15; Start 07/08/16 at 15:00 Vancomycin HCl 1 each 1 each 1X ONCE MC Last administered on 07/09/16 15:30; Start 07/09/16 at 15:30; Stop 07/09/16 at 15:31; Status DC Vancomycin HCl/ Sodium Chloride (Iv Sodium Chloride 0.9% 500ml Bag) 500 ml @ 250 mls/hr Q8H IV Last administered on 07/09/16 09:16; Start 07/08/16 at 23:59; Stop 07/09/16 at 15:54; Status DC Alprazolam (Xanax) 0.5 mg QHS PO Last administered on 07/09/16 21:00; Start 07/08/16 at 21:00 Celecoxib (Celebrex) 200 mg DAILY08 PO ; Start 07/09/16 at 08:00; Stop 07/09/16 at 08:00; Status DC Fish Oil (Fish Oil) 1,000 mg DAILY PO Last administered on 07/10/16 08:53; Start 07/09/16 at 09:00 Pantoprazole Sodium (Protonix) 40 mg DAILYAC PO Last administered on 07/10/16 06:15; Start 07/09/16 at 07:30 Celecoxib (Celebrex) 200 mg DAILY08 PO Last administered on 07/10/16 08:54; Start 07/09/16 at 08:00 Iohexol (Omnipaque 240 Mg/ml) 30 ml 1X ONCE PO Last administered on 07/08/16 18:00; Start 07/08/16 at 18:00; Stop 07/08/16 at 18:01; Status DC Info (Do NOT chart on this entry -- for MONITORING) 1 each PRN DAILY PRN MC SEE COMMENTS; Start 07/08/16 at 18:00; Stop 07/10/16 at 17:59 Acetaminophen/ Hydrocodone Bitart (Lortab 5/325) 1 tab PRN Q4HRS PRN PO PAIN Last administered on 07/10/16 04:49; Start 07/08/16 at 21:15 Acetaminophen/ Hydrocodone Bitart (Lortab 5/325) 2 tab PRN Q4HRS PRN PO PAIN Last administered on 07/09/16 22:46; Start 07/08/16 at 21:15 Colchicine (Colcrys) 0.6 mg BID PO Last administered on 07/10/16 10:13; Start 07/09/16 at 10:30; Stop 07/14/16 at 10:29 Oxycodone/ Acetaminophen (Percocet 7.5/ 325) 1 tab PRN Q6HRS PRN PO PAIN Last administered on 07/10/16 08:54; Start 07/09/16 at 12:00 Enoxaparin Sodium 40 mg 40 mg Q24H SQ Last administered on 07/09/16 12:51; Start 07/09/16 at 13:00 Vancomycin HCl/ Sodium Chloride (Iv Sodium Chloride 0.9% 500ml Bag) 500 ml @ 250 mls/hr Q12H IV Last administered on 07/09/16 21:00; Start 07/09/16 at 21:00 Active Scripts Active Reported Fish Oil 1,000 Mg Capsule (Pacolet-3 Fatty Acids/Fish Oil) 1 Each Capsule 1 Each PO Celebrex (Celecoxib) 200 Mg Capsule 200 Mg PO DAILY08 Ventolin Hfa Inhaler (Albuterol Sulfate) 18 Gm Hfa.aer.ad 18 Gm IH QIDPRN PRN Xanax (Alprazolam) 0.5 Mg Tablet 0.5 Mg PO QHS Seth 10-40 Mg Tablet (Amlodipine Bes/Olmesartan Med) 1 Each Tablet 1 Each PO DAILY08 Prilosec (Omeprazole) 20 Mg Capsule.dr 20 Mg PO DAILY08 Vitals/I & O Vital Sign - Last 24 Hours 07/09/16 07/09/16 07/09/16 07/09/16 15:00 17:42 19:50 20:00 Temp 98.0 97.8 98.0 97.8 Pulse 68 66 Resp 20 16 18 B/P 118/73 116/77 Pulse Ox 97 95 O2 Delivery Room Air Room Air Room Air Room Air 07/09/16 07/09/16 07/09/16 07/09/16 21:03 22:10 22:46 23:37 Temp 97.5 97.5 Pulse 73 Resp 16 16 16 18 B/P 132/58 Pulse Ox 96 O2 Delivery Room Air Room Air Room Air Room Air 07/09/16 07/10/16 07/10/16 07/10/16 23:45 03:00 04:49 05:50 Temp 98.2 98.2 Pulse 61 Resp 16 18 16 16 B/P 110/54 Pulse Ox 93 O2 Delivery Room Air Room Air Room Air Room Air 07/10/16 07/10/16 07/10/16 07:00 08:54 11:00 Temp 97.7 97.7 97.7 97.7 Pulse 68 61 Resp 20 18 B/P 127/68 129/76 Pulse Ox 95 93 O2 Delivery Room Air Room Air Room Air Intake and Output 07/09/16 07/09/16 07/10/16 15:00 23:00 07:00 Intake Total 1600 ml Balance 1600 ml Problem List Diarrhea- with abdominal pain, most likely infectious enteritis, await enteric pathogen stool cultures for Campylobacter, Salmonella, and Giardia. Stable for release from Gi standpoint SAMUEL ROMERO MD Jul 10, 2016 12:32
[2016-07-10] MEDS: ENOXAPARIN 40 MG/0.4 ML SYRINGE. SQ SCH (13:30)
--- NOTE | 2016-07-10 14:01 | CONS ---
DATE OF CONSULTATION: 07/09/2016 REASON FOR CONSULTATION: REASON FOR CONSULTATION: Abdominal pain, diarrhea, and abnormal CAT scan. HISTORY OF PRESENT ILLNESS: This is a 51-year-old male with past medical history significant for hypertension, gastroesophageal reflux disease, who is admitted to [facility] with worsening abdominal distress. The patient states he has had diarrhea in the past associated with cramping which has also resolved. There has been no exotic travel or unusual hobbies including raising of exotic pets. There is no family history of Crohn disease or ulcerative colitis to his knowledge. He denies any extraintestinal manifestations of IBD at this time, but has been having loose nonbloody stools for the past week with continued issues. Consultation is requested with an abnormal CT scan raising the question of possible jejunitis. PAST MEDICAL HISTORY: Hypertension, GERD, anxiety. ALLERGIES: None. MEDICATIONS: Include vancomycin, Lovenox, oxycodone, colchicine, fish oil, Celebrex and Protonix. FAMILY AND SOCIAL HISTORY: He is a social drinker, does not smoke. He is employed as software ____. FAMILY HISTORY: Otherwise, noncontributory. REVIEW OF SYSTEMS: Per records. PHYSICAL EXAMINATION: GENERAL: Reveals a well-nourished, well-developed male. VITAL SIGNS: Temperature is 97.3, pulse is 60, respirations 20, blood pressure is 114/78. HEENT: Normocephalic and atraumatic head. Pupils and extraocular movements not tested. Sclerae anicteric. NECK: Supple. LUNGS: Clear. CARDIOVASCULAR: Reveals S1, S2 without S3, S4 or appreciable murmur. ABDOMEN: Soft abdomen, normal bowel sounds, without appreciable hepatosplenomegaly with some mild periumbilical tenderness to palpation. EXTREMITIES: Reveals no cyanosis, clubbing, edema. LABORATORY STUDIES: Sodium 135, potassium 3.9, chloride 103, bicarbonate 20, BUN 16, creatinine 1.0, glucose 86, calcium 8.6, total bilirubin 0.8, AST of 15, ALT of 27, alkaline phosphatase 99, total protein , albumin 3.3. Hemoglobin 14.7, hematocrit 44.8, white count is 8.1, platelet count is 250,000. Sed rate is 17. CT of the abdomen and pelvis does reveal diffuse wall thickening in the jejunum consistent with inflammatory infectious jejunitis. No abscess or obstruction. IMPRESSION: Abdominal pain with diarrhea and abnormal CAT scan. Differential includes ischemic infectious and his new onset inflammatory bowel disease. We will recommend stool cultures for Campylobacter Giardias, Salmonella. If these are unrevealing, a small bowel series and possible ____ colonoscopy with biopsy maybe warranted pending the patient's clinical course. I would like to thank Dr. Ash for allowing us to consult and participate in the patient's care. SAMUEL ROMERO MD DR: BRIAN/matt JOB#: [id number] / [id number]
[2016-07-10] MEDS ORDERED: OXYC1TAB8 PO (14:29)
[2016-07-10 15:00] VITALS: BP 109/66
--- NOTE | 2016-07-10 15:12 | PDOC ---
SUBJECTIVE Subjective anxious to go home, foot better looks same as yesterday to me, abd pain is better, no further diarrhea OBJECTIVE Vital Signs Vital Signs Date Time Temp Pulse Resp B/P Pulse Ox O2 Delivery O2 Flow Rate FiO2 07/10/16 13:31 Room Air 07/10/16 11:00 97.7 61 18 129/76 93 Room Air 97.7 07/10/16 09:54 Room Air 07/10/16 08:54 Room Air 07/10/16 08:00 Room Air 07/10/16 07:00 97.7 68 20 127/68 95 Room Air 97.7 07/10/16 05:50 16 Room Air 07/10/16 04:49 16 Room Air 07/10/16 03:00 98.2 61 18 110/54 93 Room Air 98.2 07/09/16 23:45 16 Room Air 07/09/16 23:37 97.5 73 18 132/58 96 Room Air 97.5 07/09/16 22:46 16 Room Air 07/09/16 22:10 16 07/09/16 21:03 16 Room Air 07/09/16 20:00 Room Air 07/09/16 19:50 97.8 66 18 116/77 95 Room Air 97.8 07/09/16 17:42 16 Room Air I & O Intake and Output 07/10/16 07:00 Intake Total 1600 ml Balance 1600 ml Intake Oral 1600 ml # Voids 3 # Bowel Movements 1 PHYSICAL EXAM Physical Exam foot about same as yesterday may be slightly better abd exam improved ASSESSMENT/PLAN Assessment/Plan 1- Jujenitis and abd pain/ wt loss , + previous episodes , c.diff neg , rest of stool cultures pending, clinically improved 2-left foot cellulitis vs gout or inflammatory joint disease improved , RA + will check anti CCP , sed rate ok 3-HTN 4-hypogonadism he wants to go home, i advised him to stay on IV ABx another day , await ID recommendation of P.O ABx if to go home today. Problems: COMMENT Lab Laboratory Tests Test 07/09/16 15:25 07/10/16 04:30 Uric Acid 4.2mg/dL (3.5-7.2) 3.7mg/dL (3.5-7.2) Vancomycin Level Trough 22.1mcg/mL (10.0-20.0) Vancomycin Last Dose Date 07/09/16 Vancomycin Last Dose Time 0800 Rheumatoid Factor 39.3IU/mL (0.0-13.9) White Blood Count 6.9x10^3/uL (4.0-11.0) Red Blood Count 4.63x10^6/uL (4.30-5.70) Hemoglobin 12.6g/dL (13.0-17.5) Hematocrit 38.7% (39.0-53.0) Mean Corpuscular Volume 84fL (79-100) Mean Corpuscular Hemoglobin 27pg (25-35) Mean Corpuscular Hemoglobin Concent 33g/dL (31-37) Red Cell Distribution Width 14.3% (11.5-14.5) Platelet Count 223x10^3/uL (140-400) Erythrocyte Sedimentation Rate 10 (0-15) Sodium Level 141mmol/L (136-145) Potassium Level 4.2mmol/L (3.5-5.1) Chloride Level 109mmol/L (98-107) Carbon Dioxide Level 23mmol/L (21-32) Anion Gap 9 (6-14) Blood Urea Nitrogen 10mg/dL (8-26) Creatinine 1.0mg/dL (0.7-1.3) Estimated GFR (Cockcroft-Gault) 79.1 BUN/Creatinine Ratio 10 (6-20) Glucose Level 84mg/dL (70-99) Calcium Level 8.5mg/dL (8.5-10.1) Total Bilirubin 0.4mg/dL (0.2-1.0) Aspartate Amino Transf (AST/SGOT) 14U/L (15-37) Alanine Aminotransferase (ALT/SGPT) 23U/L (16-63) Alkaline Phosphatase 43U/L (46-116) Total Protein 6.2g/dL (6.4-8.2) Albumin 2.7g/dL (3.4-5.0) Albumin/Globulin Ratio 0.8 (1.0-1.7) JONATHAN TORRES MD Jul 10, 2016 15:12
== END 2016-07-10 15:35 | disposition home or self-care (01) | DRG 603 ==
LOC: 4 NORTH 12:03
PROVIDERS: ADMIT Family Medicine; ATTEND Family Medicine
DX: L03.116 Cellulitis of left lower limb (principal); L03.115 Cellulitis of right lower limb; K21.9 Gastro-esophageal reflux disease without esophagitis; I10 Essential (primary) hypertension; E29.1 Testicular hypofunction; M19.079 Primary osteoarthritis, unspecified ankle and foot; M10.9 Gout, unspecified; F41.9 Anxiety disorder, unspecified; R63.4 Abnormal weight loss; Z80.42 Family history of malignant neoplasm of prostate; Z86.711 Personal history of pulmonary embolism; Z68.31 Body mass index [BMI] 31.0-31.9, adult
CPT/HCPCS: 36415; 73630; 74176; 80053; 80202; 84550; 85027; 85651; 86060; 86431; 87324; J1650; J2405; J2543; J3370; J7040; Q9966

== ENCOUNTER → 2020-11-20 | Outpatient (CLI) | payer OTHER ==
[~2020-11-20] MED LIST changes: -AMLO1TAB78 PO; +AMLO1TAB97 PO; +OXYC1TAB8 PO; +REGADENOSON 0.4 MG/5 ML DISP.SYRIN. IV ONE
--- NOTE | 2020-11-20 12:52 | CARD ---
MR#: [id number] Date of Study: 11/20/2020 Ordering Physician: MARIO LABOY, Referring Physician: MARIO LABOY Tech: Anjali Izaguirre [facility] APPROVED REPORT EXAM: Two-dimensional and M-mode echocardiogram with Doppler and color Doppler. Other Information Quality : AverageHR: 57bpm Rhythm : NSR INDICATION Palpitations Murmur 2D DIMENSIONS RVDd3.4 (2.9-3.5cm)Left Atrium(2D)4.4 (1.6-4.0cm) IVSd1.4 (0.7-1.1cm)LVDd4.8 (3.9-5.9cm) LVOT Diameter2.7 (1.8-2.4cm)PWd1.2 (0.7-1.1cm) IVSs1.7 (0.8-1.2cm)LVDs3.1 (2.5-4.0cm) FS (%) 35.9 %PWs1.6 (0.8-1.2cm) SV69.8 mlLVEF(%)65.4 (>50%) Aortic Valve AoV Peak Ang.81.2cm/sAoV VTI37.2cm AO Peak GR.2.6mmHgLVOT Peak Ang.115.9cm/s LVOT VTI 30.40cmAO Mean GR.6mmHg WILLOW (VMAX)5.37bj4GHI (VTI)4.63cm2 Mitral Valve MV E Mxhmyqva30.2cm/sMV DECEL [id number] MV A Jupxnsph08.7cm/sMV BUV80kn E/A Ratio1.4MVA (PHT)4.52cm2 TDI E/Lateral E'4.6E/Medial E'9.0 Pulmonary Valve PV Peak Bkeqkizs30.6cm/sPV Peak Grad.4mmHg Tricuspid Valve TR P. Zxtsiclr748ra/sTR Peak Gr.26mmHg Pulmonary Vein S1 Tgmresba95.9cm/sD2 Oxxtcusm95.5cm/s PVa [id number] LEFT VENTRICLE The left ventricle is normal size. There is mild concentric left ventricular hypertrophy. The left ve ntricular systolic function is normal and the ejection fraction is within normal range. LV ejection fraction 55-60%. There is normal LV segmental wall motion. The left ventricular diastolic function an d filling is normal for age. RIGHT VENTRICLE The right ventricle is normal size. There is normal right ventricular wall thickness. The right ventr icular systolic function is normal. ATRIA The left atrium size is normal. The right atrium size is normal. The interatrial septum is intact wit h no evidence for an atrial septal defect or patent foramen ovale as noted on 2-D or Doppler imaging. AORTIC VALVE The aortic valve is normal in structure and function. Doppler and Color Flow revealed trace aortic re gurgitation. There is no significant aortic valvular stenosis. MITRAL VALVE The mitral valve is normal in structure and function. There is no evidence of mitral valve prolapse. There is no mitral valve stenosis. Doppler and Color-flow revealed trace mitral regurgitation. TRICUSPID VALVE The tricuspid valve is normal in structure and function. Doppler and Color Flow revealed mild tricusp id regurgitation. Estimated PAP 27 mmHg. There is no tricuspid valve stenosis. PULMONIC VALVE The pulmonary valve is normal in structure and function. Doppler and Color Flow revealed no pulmonic valvular regurgitation. GREAT VESSELS The aortic root is normal in size. The ascending aorta is normal in size. The IVC is normal in size a nd collapses >50% with inspiration. PERICARDIAL EFFUSION There is no evidence of significant pericardial effusion. Critical Notification Critical Value: No <Conclusion> The left ventricle is normal size. The left ventricular systolic function is normal and the ejection fraction is within normal range. LV ejection fraction 55-60%. There is mild concentric left ventricular hypertrophy. Doppler and Color Flow revealed trace aortic regurgitation. There is no significant aortic valvular stenosis. Doppler and Color-flow revealed trace mitral regurgitation. Doppler and Color Flow revealed mild tricuspid regurgitation. Estimated PAP 27 mmHg. Signed by : Romero Del Castillo MD Electronically Approved : 11/20/2020 12:52:12
--- NOTE | 2020-11-20 13:15 | RAD ---
MR#: [id number] Date of Study: 11/20/2020 Ordering Physician: MARIO LABOY, Referring Physician: NATALIA MUÑIZ Tech: ROSA Ramirez, ARRT (R) (N) APPROVED REPORT Test Type: Exercise Stress Nurse/Tech: EMILIANO MONREAL Test Indications: PAF, PVC'S Cardiac History: SEE EMR Medications: SEE EMR Medical History: SEE EMR Resting ECG: SB Resting Heart Rate: 58 bpm Resting Blood Pressure: 128/87mmHg Pretest Chest Pain: No chest pain Nurse/Tech Notes S1,S2, LUNGS CTA, DENIES CHEST PAIN OR SOA. PT EXPRESSED THAT STRESS AND ANXIETY CAUSE HIM TO FEEL HE ART PALPITATIONS. Consent: The procedure was explained to the patient in lay terms. Informed consent was witnessed. Oni eout was entered into [employer]. History and Stress Test performed by RT Raheem (R) (N) Stress Symptoms DENIED ANY SYMPTOMS DURING TREADMILL TEST. VITALS WNL. NO PVC'S NOTED. POST EXERCISE Reason for Termination: Reached target heart rate Target HR: 141 Max HR: 162 bpm 98% of Maximum Predicted HR: 166 bpm Exercise duration: 8 min:sec, 3 Stage Exercise capacity: 8.0METs Max Blood Pressure: 166/82mmHg Blood Pressure response to exercise: Normal blood pressure response during stress. Heart Rate response to exercise: WNL Chest Pain: No. Arrhythmia: No. NO SIGNIFICANT CHANGES NOTED FROM BASELINE EKG ST Change: No. INTERPRETATION Stress EKG Conclusion: The resting EKG shows a sinus rhythm and nonspecific ST-T wave changes. The stress EKG shows no significant changes from baseline. No EKG evidence of stress-induced ischemia. Imaging Protocol IMAGE PROTOCOL: Rest Tc-99m/stress Tc-99m 1 day Rest: Stress: Viability: Radiopharm.Tc99m PbxzzktfaVj94t Sestamibi Lpdk22xLf 33mCi Duration 15min. 10min. Img Date 11/20/2020 11/20/2020 Inj-Img Epzm58hbt. 60min. Post-Injection Exercise: 1 minute Rest Admin Site:IV - Left AntecubitalAdministrator:GORGE Harrison Stress Admin Site: IV - Left AntecubitalAdministrator: Beto Renee, RT (R)(N) STRESS DATA End Diast. Vol.99.0mlLVEDV index BSA47.0ml End Syst. Vol.25.0mlLVESV index BSA12.0ml Myocardial Hmup625.0gEject. Lgqnkydr33.0% Stress Scores Regional WT0.00Summed WT0.00 Regional WM0.00Summed WM0.00 LV Perfusion The stress scans show no significant defects. The rest scans show no significant defects. Nuclear imaging shows no reversible ischemia or infarct. Wall Motion LV systolic function is normal with no regional wall motion abnormalities and an ejection fraction of greater than 70%. LV Perf. Quant 17 Seg. SSS0.00 17 Seg. SRS0.00 17 Seg. SDS0.00 Stress Defect Extent (% LAD)0.00Rest Defect Extent (% LAD)0.00Rev. Defect Extent (% LAD)0.00 Stress Defect Extent (% LCX) 0.00Rest Defect Extent (% LCX)0.00Rev. Defect Extent (% LCX)0.00 Stress Defect Extent (% RCA)0.00Rest Defect Extent (% RCA)0.00Rev. Defect Extent (% RCA)0.00 Stress Defect Extent (% LILI)0.00Rest Defect Extent (% LILI)0.00Rev. Defect Extent (% LILI)0.00 Conclusion 1. Good exercise tolerance with the patient walking for 8 minutes on a Janes protocol. 2. No reported chest pain with exertion. 3. No EKG evidence of stress-induced ischemia. 4. Nuclear imaging shows no reversible ischemia or infarct. 5. Normal left ventricular systolic function with an ejection fraction of greater than 70%. 6. Low risk treadmill nuclear stress test. Signed by : Romero Del Castillo MD Electronically Approved : 11/20/2020 13:14:50
== END ==
LOC: NM 08:57
PROVIDERS: ATTEND Internal Medicine Cardiovascular Disease
DX: I36.1 Nonrheumatic tricuspid (valve) insufficiency (principal); I48.0 Paroxysmal atrial fibrillation
CPT/HCPCS: 78452; 93017; 93306; A9500